=== PATIENT | male | born 1980 | race Caucasian/White ===

== ENCOUNTER 2022-05-26 11:33 | Emergency (ER) | payer OTHER, SELFPAY ==
[2022-05-26 11:39] VITALS: BP 143/102; PULSE 91; RESP 15; TEMP 36.7; O2SAT 100; BMI 21.2
[2022-05-26 15:37] VITALS: BP 118/94; PULSE 81; O2SAT 98
== END 2022-05-26 18:04 | disposition left against medical advice (07) ==
PROVIDERS: Emergency Provider Emergency Medicine; PCP Physician Assistant
DX: K62.89 Other specified diseases of anus and rectum (principal)
CPT/HCPCS: 99281

== ENCOUNTER 2024-09-30 13:29 | Emergency (ER) | payer SELFPAY ==
[2024-09-30] VITALS (8 sets, daily range): BP systolic 135–144; BP diastolic 78–81; PULSE 56–85; RESP 16–19; TEMP 36.6–36.9; O2SAT 97–100; BMI 21.2
[2024-09-30 14:02] LABS: Add Manual Diff / Slide Review NO; Basophils Absolute Auto 100 /uL (0-100); Basophils Percent Auto 0.4 % (0-2); Eosinophils Absolute Auto 200 /uL (0-450); Eosinophils Percent Auto 1.1 % (2-4); Hematocrit 48.3 % (41-53); Hemoglobin 16.4 g/dL (13.5-17.5); Lymphocytes Absolute Auto 1500 /uL (1100-4500); Lymphocytes Percent Auto 11.4 % (25-40); Mean Corpuscular HGB Conc 33.9 % (30-36); Mean Corpuscular Hemoglobin 29.8 PG (26-34); Monocytes Absolute Auto 900 /uL (0-900); Monocytes Percent Auto 6.9 % (3-14); Neutrophils Absolute Auto 10800 /uL (1500-7000); Neutrophils Percent Auto 80.2 % (50-75); Platelet Count 371 X10^3/uL (150-400); Red Blood Cell Count 5.49 X10^6/uL (4.5-5.9); Red Cell Distribution Width 13.3 % (11.6-14.8); White Blood Cell Count 13.5 X10^3/uL (4.5-11.0)
--- NOTE | 2024-09-30 14:02 | PC.NURSE ---
Pt appears in pain distress. Reports feeling nauseated. Discussed plan of care, understands.
[2024-09-30 14:14] LABS: Alanine Aminotransferase 40 IU/L (<50); Albumin 4.6 g/dL (3.5-5.0); Albumin Globulin Ratio 1.5 (1.0-2.8); Alkaline Phosphatase 76 U/L (38-126); Aspartate Aminotransferase 37 IU/L (17-59); BUN Creatinine Ratio 19.1 (6-22); Bilirubin Total 1.3 mg/dL (0.2-1.3); Blood Urea Nitrogen 17 mg/dL (9-20); Calcium 9.2 mg/dL (8.4-10.2); Carbon Dioxide 28 mmol/L (22-32); Chloride 102 mmol/L (98-107); Estimated Glomerular Filt Rate > 60 mL/min (>60); Glucose 116 mg/dL (70-100); HEMOLYSIS 20 (0-50); Potassium 4.6 mmol/L (3.4-5.1); Sodium 137 mmol/L (137-145); Total Protein 7.6 g/dL (6.3-8.2)
--- NOTE | 2024-09-30 14:15 | DI.US.S_ITS ---
PROCEDURE: US SCROTUM INDICATIONS: Right testicular swelling/pain TECHNIQUE: Real-time scanning was performed of the scrotum and testicles, with image documentation. Color and pulse Doppler interrogation was performed of both testicles. COMPARISON: None. FINDINGS: Right: Testicle is normal in size at 5.4 x 2.5 x 3.8 cm, and homogenous in echotexture. Epididymis is normal in overall size and morphology. No hydrocele or varicoceles. Overlying scrotal skin is normal in thickness. Left: Testicle is normal in size at 5.1 x 2.3 x 3.5 cm, and homogeneous in echotexture. Epididymis is normal in overall size and morphology. No hydrocele or varicoceles. Overlying scrotal skin is normal in thickness. Doppler: Color and pulse Doppler demonstrate normal and symmetric arterial flow in both testicles. IMPRESSION: Normal ultrasound of the testicles without hernia identified Dictated by: Remi Hawthorne M.D. on 09/30/2024 at 15:06 Approved by: Remi Hawthorne M.D. on 09/30/2024 at 15:07
--- NOTE | 2024-09-30 14:15 | DI.CT.S_ITS ---
PROCEDURE: CT ABDOMEN PELVIS W CON INDICATIONS: IV contrast only/right lower quadrant pain TECHNIQUE: After the administration of intravenous contrast, axial sections acquired from the lung bases to the pubic symphysis. Coronal and sagittal reformats were performed. For radiation dose reduction, the following was used: automated exposure control, adjustment of mA and/or kV according to patient size. COMPARISON: None. FINDINGS: Image quality: Diagnostic. Lower Chest: No significant findings. ABDOMEN: Liver: No solid mass. Gallbladder: No radiopaque gallstones or wall thickening. Biliary ducts: No biliary dilation. Pancreas: No ductal dilation. Spleen: Size is within normal limits. Adrenal Glands: No adrenal nodules. Kidneys and Ureters: No hydronephrosis. No solid mass. No complex renal cystic lesion which requires follow up. Stomach and Bowel: Normal colonic caliber, without significant wall thickening. Moderate stool volume. The appendix is not confidently identified however no pericecal inflammatory changes. Diffusely enlarged stomach with large volume enteric contents. Peritoneum: No abnormal intraperitoneal fluid. No free air. Ventral Wall: No significant ventral hernia. Abdominal Nodes: No retroperitoneal or mesenteric adenopathy by size criteria. Vessels: Aorta and inferior vena cava are normal in size. PELVIS: Pelvic Organs: Unremarkable. Bladder: No bladder wall thickening, accounting for underdistention. Pelvic Nodes: No enlarged lymph nodes. Miscellaneous: No inguinal hernias are seen. Bones: No aggressive osseous abnormality. IMPRESSION: No acute finding. Moderate to large stool volume throughout the colon. Dictated by: Remi Hawthorne M.D. on 09/30/2024 at 14:32 Approved by: Remi Hawthorne M.D. on 09/30/2024 at 14:38
--- NOTE | 2024-09-30 14:17 | ED.ABDPAIN ---
HPI - Abdominal Pain General Chief Complaint: Abdominal Pain Stated Complaint: cold sweats and vomiting pain right side abd Time Seen by Provider: 09/30/24 13:49 Source: patient Mode of arrival: Ambulatory History of Present Illness HPI narrative: Patient here with girlfriend. Complains of right scrotal pain/right testicular pain for many months. Has had off and on pain. No urethral discharge. Patient states has had off and on difficulty with urination. No hematuria. No dysuria. And increased right lower quadrant pain. Has had chills and nausea/vomiting. Denies any abdominal surgical history. No confirm history of hernia. Related Data Previous Rx's Medication Instructions Recorded docusate sodium 100 mg capsule 100 mg PO BID #30 caps 09/30/24 (Dulcolax Stool Softener (docusate)) Allergies Allergy/AdvReac Type Severity Reaction Status Date / Time No Known Drug Allergies Allergy Verified 09/30/24 13:51 Review of Systems Review of Systems Narrative: GENERAL: Negative chills, fatigue, malaise, fever, sweats. HEENT: Negative sinus pain, ear pain, sore throat RESPIRATORY: Negative dyspnea, cough CARDIOVASCULAR: Negative chest pain, palpitations GASTROINTESTINAL: Positive vomiting, positive nausea, abdominal pain : Positive dysuria, negative frequency, hematuria, positive testicular pain and swelling MUSCULOSKELETAL: Negative muscle or bony pain SKIN: Negative rash, skin lesions NEUROLOGIC: Negative weakness, numbness ROS Unobtainable: All systems reviewed & are unremarkable except as noted in HPI and below Patient History Social History Smoking Status: Never smoker Smoking Status: Never smoker alcohol intake frequency: 0-2 drinks per day Exam Narrative Exam Narrative: GENERAL: in no distress, not toxic not dyspneic HEAD: Normocephalic. EYES: Pupils equal round ENT: Mucous membranes moist. NECK: Trachea midline. CARDIOVASCULAR: Regular rate and rhythm RESPIRATORY: Clear to auscultation. Breath sounds equal bilaterally. No wheezes, rales, or rhonchi. GASTROINTESTINAL: Abdomen soft, reproducible McBurney point tenderness. Otherwise abdomen is soft and flat. No peritoneal signs no guarding or rebound., there is diffuse right testicular tenderness and scrotal sac on the right is slightly enlarged compared to the left. Strong bilateral cremasteric reflexes. Patient is uncircumcised. No lesions on the scrotal sac or penis. EXTREMITIES: No gross deformities. NEURO: AOx4. Clear speech SKIN: Warm and dry PSYCH: Not anxious, is cooperative Initial Vital Signs Initial Vital Signs: Vital Signs Pulse Rate 63 09/30/24 13:35 Blood Pressure 144/81 H 09/30/24 13:35 Pulse Oximetry 99 09/30/24 13:35 Course Orders Ordered: Discontinued Medications Morphine Sulfate (Morphine 4 Mg/Ml Inj) 4 mg IV NOW ONE Stop: 09/30/24 14:16 Last Admin: 09/30/24 14:24 Dose: 4 mg Documented By: Ondansetron HCl (Ondansetron 4 Mg/2 Ml Inj) 4 mg IV NOW ONE Stop: 09/30/24 14:16 Last Admin: 09/30/24 14:24 Dose: 4 mg Documented By: Polyethylene Glycol/Electrolytes ([id number]/Sod Sulf,Bicarb,Cl/Kcl 4,000 Ml Solution) 4,000 ml PO NOW ONE Stop: 09/30/24 16:23 Last Admin: 09/30/24 16:35 Dose: 4,000 ml Documented By: Vital Signs Vital signs: Vital Signs - 8 hr 09/30/24 13:35 09/30/24 13:35 09/30/24 13:52 Temperature 97.9 F Pulse Rate 63 85 Respiratory Rate 18 Blood Pressure 144/81 H 144/81 H Pulse Oximetry 99 98 Oxygen Delivery Method Room Air 09/30/24 14:00 09/30/24 14:30 09/30/24 15:00 Temperature Pulse Rate 57 L 64 66 Respiratory Rate Blood Pressure Pulse Oximetry 97 98 100 Oxygen Delivery Method Room Air MDM - Abdominal Pain Lab Data 09/30/24 13:45 09/30/24 13:45 Labs: Lab Results 09/30/24 Range/Units 13:45 WBC 13.5 H (4.5-11.0) X10^3/uL RBC 5.49 (4.5-5.9) X10^6/uL Hgb 16.4 (13.5-17.5) g/dL Hct 48.3 (41-53) % MCV 88.0 (80-100) fL MCH 29.8 (26-34) PG MCHC 33.9 (30-36) % RDW 13.3 (11.6-14.8) % Plt Count 371 (150-400) X10^3/uL Neut % (Auto) 80.2 H (50-75) % Lymph % (Auto) 11.4 L (25-40) % [place] % (Auto) 6.9 (3-14) % Eos % (Auto) 1.1 L (2-4) % Baso % (Auto) 0.4 (0-2) % Neut # (Auto) 59763 H (4472-1460) /uL Lymph # (Auto) 1500 (4295-9473) /uL [place] # (Auto) 900 (0-900) /uL Eos # (Auto) 200 (0-450) /uL Baso # (Auto) 100 (0-100) /uL Sodium 137 (137-145) mmol/L Potassium 4.6 (3.4-5.1) mmol/L Chloride 102 (98-107) mmol/L Carbon Dioxide 28 (22-32) mmol/L BUN 17 (9-20) mg/dL Creatinine 0.89 (0.66-1.25) mg/dL Estimated GFR > 60 (>60) mL/min BUN/Creatinine Ratio 19.1 (6-22) Glucose 116 H (70-100) mg/dL Calcium 9.2 (8.4-10.2) mg/dL Total Bilirubin 1.3 (0.2-1.3) mg/dL AST 37 (17-59) IU/L ALT 40 (<50) IU/L Alkaline Phosphatase 76 (38-126) U/L Total Protein 7.6 (6.3-8.2) g/dL Albumin 4.6 (3.5-5.0) g/dL Globulin 3.0 (1.7-4.1) g/dL Albumin/Globulin Ratio 1.5 (1.0-2.8) Imaging Data CT scan - abdomen/pelvis: Radiologist's Impression: [address] [address] [address] Scan Report Signed Patient: Bertin Thompson MR#: [id number] : 1980 Acct:[id number] Age/Sex: 43 / M Date of Service: 09/30/24 Loc: ED Accession Number: [id number] Procedure: CT abdomen pelvis w con Ordering Provider: Remi Camacho MD PROCEDURE: CT ABDOMEN PELVIS W CON INDICATIONS: IV contrast only/right lower quadrant pain TECHNIQUE: After the administration of intravenous contrast, axial sections acquired from the lung bases to the pubic symphysis. Coronal and sagittal reformats were performed. For radiation dose reduction, the following was used: automated exposure control, adjustment of mA and/or kV according to patient size. COMPARISON: None. FINDINGS: Image quality: Diagnostic. Lower Chest: No significant findings. ABDOMEN: Liver: No solid mass. Gallbladder: No radiopaque gallstones or wall thickening. Biliary ducts: No biliary dilation. Pancreas: No ductal dilation. Spleen: Size is within normal limits. Adrenal Glands: No adrenal nodules. Kidneys and Ureters: No hydronephrosis. No solid mass. No complex renal cystic lesion which requires follow up. Stomach and Bowel: Normal colonic caliber, without significant wall thickening. Moderate stool volume. The appendix is not confidently identified however no pericecal inflammatory changes. Diffusely enlarged stomach with large volume enteric contents. Peritoneum: No abnormal intraperitoneal fluid. No free air. Ventral Wall: No significant ventral hernia. Abdominal Nodes: No retroperitoneal or mesenteric adenopathy by size criteria. Vessels: Aorta and inferior vena cava are normal in size. PELVIS: Pelvic Organs: Unremarkable. Bladder: No bladder wall thickening, accounting for underdistention. Pelvic Nodes: No enlarged lymph nodes. Miscellaneous: No inguinal hernias are seen. Bones: No aggressive osseous abnormality. IMPRESSION: No acute finding. Moderate to large stool volume throughout the colon. Dictated by: Remi Hawthorne M.D. on 09/30/2024 at 14:32 Approved by: Remi Hawthorne M.D. on 09/30/2024 at 14:38 Scrotal ultrasound: Radiologist's Impression: [place] [address] Ultrasound Report Signed Patient: Bertin Thompson MR#: [id number] : 1980 Acct:[id number] Age/Sex: 43 / M Date of Service: 09/30/24 Loc: ED Accession Number: [id number] Procedure: US scrotum Ordering Provider: Remi Camacho MD PROCEDURE: US SCROTUM INDICATIONS: Right testicular swelling/pain TECHNIQUE: Real-time scanning was performed of the scrotum and testicles, with image documentation. Color and pulse Doppler interrogation was performed of both testicles. COMPARISON: None. FINDINGS: Right: Testicle is normal in size at 5.4 x 2.5 x 3.8 cm, and homogenous in echotexture. Epididymis is normal in overall size and morphology. No hydrocele or varicoceles. Overlying scrotal skin is normal in thickness. Left: Testicle is normal in size at 5.1 x 2.3 x 3.5 cm, and homogeneous in echotexture. Epididymis is normal in overall size and morphology. No hydrocele or varicoceles. Overlying scrotal skin is normal in thickness. Doppler: Color and pulse Doppler demonstrate normal and symmetric arterial flow in both testicles. IMPRESSION: Normal ultrasound of the testicles without hernia identified Dictated by: Remi Hawthorne M.D. on 09/30/2024 at 15:06 Approved by: Remi Hawthorne M.D. on 09/30/2024 at 15:07 [facility] Narrative Medical decision making narrative: Patient here with girlfriend. Complains of right scrotal pain/right testicular pain for many months. Has had off and on pain. No urethral discharge. Patient states has had off and on difficulty with urination. No hematuria. No dysuria. And increased right lower quadrant pain. Has had chills and nausea/vomiting. Denies any abdominal surgical history. No confirm history of hernia. After history and exam, scrotal ultrasound CT scan abdomen pelvis morphine Zofran normal saline CBC CMP urinalysis [facility] Medical records reviewed: No recent visit for this complaint Differential considered: Includes but not limited to testicular torsion epididymitis hydrocele varicocele hernia this kidney stone UTI orchitis Lab Test results independently reviewed as above. Pertinent findings: WBC 13.5 hemoglobin 16.4 sodium 137 potassium 4.6 BUN 17 creatinine 0.89 Imaging studies independently reviewed: CT abdomen pelvis no acute finding, constipation noted, ultrasound scrotal sac no acute finding Consultations: None indicated Re-evaluations: 4:26 p.m. Updated patient and girlfriend results. Pain is better. It is controlled. Return precautions reviewed. At this time laboratory studies imaging studies are reassuring. Appendicitis precautions reviewed. Reviewed about constipation findings and patient is not surprised because he has had problems with constipation in the past and currently. Referral for Urology provided. He desires discharge home. Discussion: Appropriate for discharge home exam is reassuring. Return precautions reviewed with patient. Not toxic at discharge. Referral for Urology provided. He desires discharge home. Laboratory studies and images are reassuring. Diagnosis: Constipation testicular pain Discharge Plan Departure Patient Disposition: Home Clinical Impression: Pain in right testicle Constipation Qualifiers: Constipation type: unspecified constipation type Qualified Code(s): K59.00 - Constipation, unspecified Abdominal pain Qualifiers: Abdominal location: right lower quadrant Qualified Code(s): R10.31 - Right lower quadrant pain Instructions: DI for Appendicitis -- Adult, DI for Constipation, DI for Testicular Pain Activity Restrictions/Additional Instructions: Your exam and laboratory studies imaging studies are reassuring. Your ultrasound of the scrotal area is reassuring. Please do call provided urology office on Wednesday for follow up regarding your testicular pain that has been gone for a long time. Continue ibuprofen for pain. No driving operating machinery today as you have been given pain medication. 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 You have been sent home with GoLYTELY medication to help 4 bowel movements this weekend. You do not have to drink the whole container a mount. You need to drink enough to promote good bowel movement this weekend. Keep well hydrated. Return if worse if any questions or concerns. Please do read literature about appendicitis, return immediately if worse if any questions or concerns Prescriptions: New docusate sodium [Dulcolax Stool Softener (dss)] 100 mg capsule 100 mg PO BID Qty: 30 0RF Referrals: Horace Maddox DO [Physician] - Courtney Small PA-C [Primary Care Provider] - Stand Alone Forms: Patient Portal/API/Survey
[2024-09-30] MEDS: MORPHINE 4 MG/ML INJ IV (14:24)
[2024-09-30] MEDS: ONDANSETRON 4 MG/2 ML INJ IV (14:24)
--- NOTE | 2024-09-30 14:45 | PC.NURSE ---
Called pt cell phone to have pt return to ER to remove IV. Pt did not answer and unable to leave a message d/t full inbox. Pt does not have address.
[2024-09-30] MEDS: PEG3350/SOD SULF,BICARB,CL/KCL 4,000 ML SOLUTION 4000 ML PO (16:35)
--- NOTE | 2024-09-30 16:40 | PC.NURSE ---
Pt left without having IV removed. MD notified. press brake operator notified.
== END 2024-09-30 16:40 | disposition home or self-care (01) ==
PROVIDERS: Emergency Provider Emergency Medicine; PCP Physician Assistant
DX: N50.811 Right testicular pain (principal); R10.31 Right lower quadrant pain; K59.00 Constipation, unspecified; R11.2 Nausea with vomiting, unspecified
CPT/HCPCS: 36415; 74177; 76870; 80053; 85025; 93975; 96374; 96375; 99284; J2270; J2405; Q9967